=== PATIENT | female | born 1965 | race Caucasian/White ===

== ENCOUNTER 2020-01-23 01:58 | Outpatient (CLI) | payer BC, SELFPAY ==
[2020-01-23 12:45] LABS: Abs Immature Grans 0.01 10^3/uL (0.0-0.06); Absolute Basophil Count 0.04 10^3/uL (0.0-0.2); Absolute Lymphocyte Count 2.53 10^3/uL (1.2-3.4); Absolute Monocyte Count 0.46 10^3/uL (0.1-0.8); Absolute Neutrophil Count 3.49 10^3/uL (1.2-6.7); Basophils % 0.6; Eosinophils % 4.4; HCT 32.6 % (36.0-46.0); HGB 11.1 g/dL (11.2-15.7); Immature Grans % 0.1; MCH 29.1 pg (27.0-33.0); MCV 85.3 fL (80-95); MPV 8.8 fL (8.0-11.0); Monocytes % 6.7; Neutrophils % 51.2; Nucleated RBC 0 %; Platelet Count 310 10^3/uL (130-400); RBC 3.82 10^6/uL (3.93-5.22); RDW 11.9 % (11.7-14.6); RDW-SD 37.4 fL; WBC 6.83 10^3/uL (4.4-10.8)
[2020-01-23 13:24] LABS: Hemoglobin A1C 5.7 % (<5.7)
[2020-01-23 14:17] LABS: ALT 21 U/L (14-59); AST 24 U/L (15-37); Albumin 3.6 g/dL (3.4-5.0); Alkaline Phosphatase 53 U/L (46-116); Anion Gap 7.9 mmol/L (3-11); BUN 21 mg/dL (7-18); Bilirubin, Total 0.2 mg/dL (0.2-1.0); CO2 26.1 mmol/L (21.0-32.0); Calcium 9.4 mg/dL (8.5-10.1); Chloride 105 mmol/L (98-107); Glucose 90 mg/dL (74-106); Sodium 139 mmol/L (136-145); TSH (W/Ref FT4) 0.69 uIU/mL (0.36-3.74); Total Protein 6.1 g/dL (6.4-8.2)
== END 2020-01-23 02:18 ==
PROVIDERS: PCP Family Medicine; Visit Provider Family Medicine
DX: R63.4 Abnormal weight loss (principal); E11.9 Type 2 diabetes mellitus without complications
CPT/HCPCS: 36415; 80053; 83036; 84443; 85025

== ENCOUNTER 2020-03-11 08:43 | Outpatient (CLI) | payer BC, SELFPAY ==
[2020-03-16 01:35] LABS: Patient Race White; SARS-CoV-2 RNA Undetected (Undetected); SARS-CoV-2 Specimen Source Nasal
== END 2020-03-11 09:03 ==
PROVIDERS: PCP Family Medicine; Visit Provider Family Medicine
DX: Z11.59 Encounter for screening for other viral diseases (principal)
CPT/HCPCS: U0003

== ENCOUNTER 2020-05-05 00:29 | Outpatient (CLI) | payer BC, SELFPAY ==
--- NOTE | 2020-05-05 | DI.RAD_ITS ---
EXAM: XR LUMBAR SPINE COMPLETE CLINICAL HISTORY: LUMBAGO, LOW BACK PAIN,M54.5. TECHNIQUE: 2D digital imaging was performed. COMPARISON: No exams were available for comparison FINDINGS: BONES: No fracture or destructive lesion. Vertebral bodies are unremarkable. No facet hypertrophy lisbeth ntified. DISKS: At L5-S1 there is disc space narrowing, vacuum disc and endplate sclerosis. The remaining dis c levels are unremarkable. ALIGNMENT: Lumbar spinal alignment is within normal limits. SOFT TISSUE: Normal. IMPRESSION: Degenerative disc disease at L5-S1. DATA REPOSITORY: RADIATION DOSE DELIVERED:
== END 2020-05-05 00:49 ==
PROVIDERS: PCP Family Medicine; Visit Provider Family Medicine
DX: M47.817 Spondylosis without myelopathy or radiculopathy, lumbosacral region (principal)
CPT/HCPCS: 72110

== ENCOUNTER 2020-05-06 11:37 | Outpatient (REF) | payer BC, SELFPAY ==
[2020-05-06 12:29] LABS: HCT 36.6 % (36.0-46.0); HGB 12.4 g/dL (11.2-15.7); MCH 29.4 pg (27.0-33.0); MCHC 33.9 % (32.0-36.0); MCV 86.7 fL (80-95); MPV 9.4 fL (8.0-11.0); Platelet Count 389 10^3/uL (130-400); RBC 4.22 10^6/uL (3.93-5.22); RDW-SD 38.6 fL; WBC 7.19 10^3/uL (4.4-10.8)
[2020-05-06 13:03] LABS: Vitamin B12 780 pg/mL (193-986)
[2020-05-06 13:11] LABS: Folate > 20.0 ng/mL (8.6-20.0)
[2020-05-10 13:54] LABS: Total Protein 6.9 g/dL (6.3-8.2)
== END 2020-05-06 11:57 ==
LOC: LBN 11:37
PROVIDERS: PCP Family Medicine; Visit Provider Family Medicine
DX: D64.9 Anemia, unspecified (principal); R63.4 Abnormal weight loss; M54.5 Low back pain
CPT/HCPCS: 85027; 82607; 82746; 84165

== ENCOUNTER 2021-02-15 02:33 | Outpatient (CLI) | payer BC, SELFPAY ==
--- NOTE | 2021-02-15 06:45 | DI.RAD_ITS ---
Exam(s) XR HIP RT COMPLETE AP PELVIS EXAM: XR HIP RT COMPLETE AP PELVIS CLINICAL HISTORY: r hip pain,M25.551. TECHNIQUE: 2D digital imaging was performed of the right hip. Three images were obtained. AP pelvis and lateral right hip views were obtained. COMPARISON: CR XR LUMBAR SPINE COMPLETE from 05/05/2020 CR XR LUMBAR SPINE COMPLETE from 05/05/2020 FINDINGS: BONES: No acute fracture is present. No bony destructive lesion is seen. JOINTS: No dislocation present. Marked degenerative changes are seen in the right hip with loss of th e superior joint space, [id number] appearance. There are subchondral cysts in both the acetabular roof in the superior femoral head. Hypertrophic changes are seen at the acetabular roof. The findin gs have advanced since the prior examination of the lumbar spine from 05/05/2020. SOFT TISSUE: There is a large amount of stool in the colon. IMPRESSION: 1. Marked degenerative changes of the right hip. 2. Findings suggestive of constipation. DATA REPOSITORY: RADIATION DOSE DELIVERED:
== END 2021-02-15 02:53 ==
PROVIDERS: PCP Family Medicine; Visit Provider Family Medicine
DX: M25.551 Pain in right hip (principal); M16.11 Unilateral primary osteoarthritis, right hip
CPT/HCPCS: 73502